=== PATIENT | female | born 1985 | race African-American/Black ===

== ENCOUNTER 2016-08-26 15:41 | Emergency (ER) | payer SELFPAY ==
[~2016-08-26] VITALS: Ht 149.9 cm; Wt 61.0 kg
[~2016-08-26 15:41] MED LIST: HYDR-3533 PO; PRED20 PO
[2016-08-26 15:43] VITALS: BP 138/64; PULSE 64; RESP 15; TEMP 98.4; O2SAT 97
[2016-08-26 16:01] VITALS: BP 116/74; PULSE 76; RESP 16; O2SAT 97
[2016-08-26] MEDS ORDERED: ONDANSETRON ODT 4 MG TAB PO ONE (16:15)
--- NOTE | 2016-08-26 16:16 | PD ---
HPI Chief Complaint: Cold / Flu Symptoms Time Seen by Provider: 16:16 Travel History International Travel<30 days: No Contact w/Intl Traveler<30days: No Traveled to known affect area: No History of Present Illness HPI 31-year-old female presents to the emergency department for evaluation of cold symptoms for 2 weeks. She reports nausea, vomiting, sore throat, cough and congestion. She denies any fevers. She reports vomiting last time yesterday, but states she has not been eating due to nausea. She does report drinking plenty of fluids. The patient also reports right shoulder pain for 1 week. She states that she does a lot of heavy lifting and denies any trauma. She states pain is worse with movement. She also reports numbness to the first and second digits of the right hand. However, patient was diagnosed with carpal tunnel in April 2016 and has not followed up with a hand surgeon. Patient denies any abdominal pain. She denies any chance of . No other complaints. Patient does report a history of pneumonia one year ago. PFSH Past Medical History Anemia: Yes Asthma: Yes Diabetes: No Diminished Hearing: No Gastrointestinal Disorders: No Genitourinary: Yes (HX BLADDER INFECTIONS ) Reproductive: No Respiratory: Yes Immunizations Current: Yes Influenza Vaccination: No ?: Not LMP: 08/07/2016 Menopausal: No : 3 Para: 2 Miscarriage: 0 : 0 Past Surgical History Section: Yes (X2) Gynecologic Surgery: Yes (C-SECT X 2) Social History Alcohol Use: No Tobacco Use: No Substance Use: No Allergies-Medications (Allergen,Severity, Reaction): Coded Allergies: Aspirin (Verified Allergy, Severe, RASH, 08/26/16) Codeine (Verified Allergy, Severe, Swelling, 08/26/16) Iodine (Verified Allergy, Severe, RASH WHEN USED TOPICALLY, 08/26/16) Penicillin (Verified Allergy, Severe, Shortness of Breath, 08/26/16) TYLENOL PM EXTRA STRENGTH CAPLETS (Verified Allergy, Severe, RASH, 08/26/16) *MDRO Multi-Drug Resistant Organism (Verified Allergy, Unknown, 08/26/16) MRSA 2004 Facial wound Reported Meds & Prescriptions Reported Meds & Active Scripts Active No Active Prescriptions or Reported Medications Review of Systems Except as stated in HPI: all other systems reviewed are Neg Physical Exam Narrative GENERAL: Well-developed well-nourished female patient, ambulatory. Afebrile. Vital signs stable. SKIN: Warm and dry. HEAD: Normocephalic. Atraumatic. EYES: No scleral icterus. No injection or drainage. ENT: Mucosa pink and moist. No erythema or exudates. No uvular edema. No uvular , palatal, or tonsillar deviation. Airway patent. Nasal turbinates appear normal without nasal blood, purulent drainage or septal hematoma. Bilateral tympanic membranes are clear without erythema or perforation. NECK: Supple, trachea midline. No JVD or lymphadenopathy. CARDIOVASCULAR: Regular rate and rhythm without murmurs, gallops, or rubs. Right radial pulse 2+. RESPIRATORY: Breath sounds equal bilaterally. No accessory muscle use. Lungs sounds are clear to auscultation. GASTROINTESTINAL: Abdomen soft, non-tender, nondistended. MUSCULOSKELETAL: No cyanosis, or edema. Patient has tenderness over right shoulder with full range of motion. No obvious deformity. No evidence of acute injury. BACK: Nontender without obvious deformity. No CVA tenderness. Data Data Last Documented VS Vital Signs Date Time Temp Pulse Resp B/P Pulse Ox O2 Delivery O2 Flow Rate FiO2 08/26/16 16:01 76 16 116/74 97 08/26/16 15:43 98.4 Orders Group A Rapid Strep Screen (08/26/16 16:14) Chest, Single Ap (08/26/16 ) Ondansetron Odt (Zofran Odt) (08/26/16 16:15) Strep Culture (Group A) (08/26/16 17:00) MDM Medical Decision Making Medical Screen Exam Complete: Yes Emergency Medical Condition: Yes Medical Record Reviewed: Yes Interpretation(s) chest x-ray - CONCLUSION: 1. Mild cardiomegaly. No focal infiltrate or effusion. Mild scoliosis. Differential Diagnosis Viral URI versus strep pharyngitis versus bronchitis versus pneumonia Narrative Course 31-year-old female presents to the emergency department for evaluation of cold symptoms for 2 weeks as well as right shoulder pain for 1 week. Right shoulder pain is consistent with a muscle strain. Strep swab and chest x-ray ordered and pending. She was given Zofran 4 mg ODT. Strep is negative. Chest x-ray shows no acute infiltrate or effusion. Symptoms are consistent with viral URI. She is instructed to follow with her primary care physician. She is return for any acute worsening of symptoms. Patient is agreeable. Patient is requesting another velcro wrist splint for right wrist due to carpal tunnel that she has has since April. The patient was discharged in stable condition with instructions, including return instructions and follow up instructions. Diagnosis Primary Impression: Upper respiratory infection Qualified Code: J06.9 - Viral upper respiratory tract infection Additional Impression: Right carpal tunnel syndrome Referrals: Primary Care Physician call for appointment Patient Instructions: General Instructions, Upper Respiratory Infection (ED) Additional Instructions: Zofran as directed as needed for nausea. Rest. Drink plenty of fluids. Philipp diet. Follow up with your primary care physician. Return to the emergency department for any acute, worsening of symptoms. Med/Other Pt SpecificInfo: Prescription(s) given Scripts Ondansetron Odt 4 Mg Tab4 Mg SL Q6HR PRN (Nausea/Vomiting) #12 TAB Ref 0 Prov:Caroline Ledesma 08/26/16 Disposition: 01 DISCHARGE HOME Condition: Stable Caroline Ledesma Aug 26, 2016 16:16
--- NOTE | 2016-08-26 17:34 | RADRPT ---
EXAM DATE/TIME: 08/26/2016 16:38 [facility] COMPARISON: CHEST SINGLE AP, April 13, 2014, 18:34. INDICATIONS : Cough MEDICAL HISTORY : None SURGICAL HISTORY : None ENCOUNTER: Initial ACUITY: Acute PAIN SCORE: Zero LOCATION: Chest FINDINGS: A single view of the chest demonstrates the lungs to be symmetrically aerated without evidence of mas s, infiltrate or effusion. The cardiomediastinal contours are mildly prominent. Osseous structures a re intact. CONCLUSION: 1. Mild cardiomegaly. No focal infiltrate or effusion. Mild scoliosis. Aden Morgan MD on August 26, 2016 at 17:32 Board Certified Radiologist. This report was verified electronically.
[2016-08-26] MEDS ORDERED: ONDA4TAB7 SL (17:46)
== END 2016-08-26 18:50 | disposition home or self-care (01) ==
LOC: NEPC 15:41
DX: J06.9 Acute upper respiratory infection, unspecified (principal); G56.01 Carpal tunnel syndrome, right upper limb
CPT/HCPCS: 71010; 87081; 87880; 99283; L3908

== ENCOUNTER 2017-02-03 17:28 | Emergency (ER) | payer SELFPAY ==
[~2017-02-03] VITALS: Ht 149.9 cm; Wt 60.0 kg
[~2017-02-03 17:28] MED LIST changes: -HYDR-3533 PO; +ONDA4TAB7 SL; -PRED20 PO
[2017-02-03 17:31] VITALS: BP 128/70; PULSE 120; RESP 20; TEMP 98.8; O2SAT 100
[2017-02-03 18:34] LABS: BACTERIA, URINE MANY /hpf; BLOOD, URINE MOD (NEG); COMMENT (UR) CULTURE INDICATED; CULTURE IF INDICATED CULTURE INDICATED; GLUCOSE,URINE NEG (NEG); KETONE, URINE NEG (NEG); MUCUS URINE FEW /lpf (OCC); NITRITE,URINE NEG (NEG); PH, URINE 6.5 (5.0-8.5); SQUAMOUS EPITHELIAL CELL URINE 2 /hpf (0-5); TRANSITIONAL EPI CELLS, URINE 1 /hpf; URINE COLOR YELLOW (YELLW/STRAW)
[2017-02-03] MEDS ORDERED: PHEN0.4T PO (19:09)
[2017-02-03] MEDS ORDERED: MACR100C2 PO (19:09)
--- NOTE | 2017-02-03 19:10 | PD ---
HPI . Pelvic pain Chief Complaint: Abdominal Pain Time Seen by Provider: 18:54 Travel History International Travel<30 days: No Contact w/Intl Traveler<30days: No Traveled to known affect area: No History of Present Illness HPI This patient presents with a chief complaint of a one-week history of pelvic pain associated with dysuria, frequency and malodorous urine. She denies fever. She has not had any flank pain. She reports some nausea but no vomiting. No modifying factors. She rates her pain 9/10. PFSH Past Medical History Anemia: Yes Asthma: Yes Diabetes: No Diminished Hearing: No Gastrointestinal Disorders: No Genitourinary: Yes (HX BLADDER INFECTIONS ) Reproductive: No Respiratory: Yes (ASTHMA) Immunizations Current: Yes Menopausal: No : 3 Para: 2 Miscarriage: 0 : 0 Past Surgical History Section: Yes (X2) Gynecologic Surgery: Yes (C-SECT X 2) Social History Alcohol Use: No Tobacco Use: No Substance Use: No Allergies-Medications (Allergen,Severity, Reaction): Coded Allergies: Aspirin (Verified Allergy, Severe, RASH, 02/03/17) Codeine (Verified Allergy, Severe, Swelling, 02/03/17) Iodine (Verified Allergy, Severe, RASH WHEN USED TOPICALLY, 02/03/17) Penicillin (Verified Allergy, Severe, Shortness of Breath, 02/03/17) TYLENOL PM EXTRA STRENGTH CAPLETS (Verified Allergy, Severe, RASH, 02/03/17 ) *MDRO Multi-Drug Resistant Organism (Verified Allergy, Unknown, 02/03/17) MRSA 2004 Facial wound Reported Meds & Prescriptions Reported Meds & Active Scripts Active Ondansetron Odt 4 Mg Tab 4 Mg SL Q6HR PRN Review of Systems Except as stated in HPI: all other systems reviewed are Neg General / Constitutional: No: Fever, Chills Gastrointestinal: Positive: Nausea, No: Vomiting Genitourinary: Positive: Urgency, Frequency, Dysuria, Pelvic Pain, No: Flank Pain Physical Exam Narrative GENERAL: Awake and alert and in no acute distress. SKIN: Warm and dry. HEAD: Atraumatic. Normocephalic. EYES: Pupils equal and round. NECK: Trachea midline. CARDIOVASCULAR: Regular rate and rhythm. RESPIRATORY: No accessory muscle use. GI/: Mild suprapubic tenderness with no guarding or rebound. No CVA tenderness. MUSCULOSKELETAL: No obvious deformities. No edema. NEUROLOGICAL: Awake and alert. No obvious cranial nerve deficits. Motor grossly within normal limits. Normal speech. PSYCHIATRIC: Appropriate mood and affect; insight and judgment normal. Data Data Last Documented VS Vital Signs Date Time Temp Pulse Resp B/P Pulse Ox O2 Delivery O2 Flow Rate FiO2 02/03/17 17:31 98.8 120 20 128/70 100 Room Air Orders Urinalysis - C+S If Indicated (02/03/17 17:40) Urine Culture (02/03/17 17:45) Labs Laboratory Tests Test 02/03/17 17:45 Urine Color YELLOW Urine Turbidity HAZY Urine pH 6.5 Urine Specific [place] 1.022 Urine Protein 30 mg/dL Urine Glucose (UA) NEG mg/dL Urine Ketones NEG mg/dL Urine Occult Blood MOD Urine Nitrite NEG Urine Bilirubin NEG Urine Urobilinogen 2.0 MG/DL Urine Leukocyte Esterase LARGE Urine RBC 136 /hpf Urine WBC /hpf Urine Squamous Epithelial 2 /hpf Cells Urine Transitional Epithelial 1 /hpf Cells Urine Bacteria MANY /hpf Urine Mucus FEW /lpf Microscopic Urinalysis Comment CULTURE INDICATED MDM Medical Decision Making Medical Screen Exam Complete: Yes Emergency Medical Condition: Yes Differential Diagnosis Final differential diagnosis of urinary symptoms includes but is not limited to UTI, kidney stone, pyelonephritis, bacterial vaginosis, yeast infection, urinary retention Narrative Course This patient presents with signs and symptoms compatible with UTI. UA>>large LE, 136 RBCs. TNTC WBCs, many bact. This patient will be treated for UTI with Macrobid and Pyridium. Diagnosis Primary Impression: Urinary tract infection Qualified Code: N30.00 - Acute cystitis without hematuria Patient Instructions: General Instructions, Urinary Tract Infection in Women ( [place]) Med/Other Pt SpecificInfo: Prescription(s) given Scripts Phenazopyridine (Pyridium)100 Mg [id number] Mg PO every 6 hours PRN (DYSURIA) #10 TAB Ref 0 Prov:Karime Fernandez MD 02/03/17 Nitrofurantoin Monohydrate Macrocrystals (Macrobid)100 Mg [id number] Mg PO BID 7 Days Ref 0 Prov:Karime Fernandez MD 02/03/17 Disposition: 01 DISCHARGE HOME Condition: Stable Karime Fernandez MD Feb 03, 2017 19:10
[2017-02-03] MEDS ORDERED: PHENAZOPYRIDINE HCL 200 MG TAB PO ONE (19:15)
[2017-02-03] MEDS ORDERED: NITROFURANTOIN MONOHYD MACROCR 100 MG CAP PO ONE (19:15)
== END 2017-02-03 19:30 | disposition home or self-care (01) ==
LOC: NEPD 17:28
DX: N39.0 Urinary tract infection, site not specified (principal); B96.20 Unspecified Escherichia coli [E. coli] as the cause of diseases classified elsewhere; R11.0 Nausea; D64.9 Anemia, unspecified; J45.909 Unspecified asthma, uncomplicated; Z88.5 Allergy status to narcotic agent; Z79.899 Other long term (current) drug therapy
CPT/HCPCS: 81001; 87077; 87086; 87186; 99284

== ENCOUNTER 2017-04-29 12:52 | Emergency (ER) | payer SELFPAY ==
[~2017-04-29] VITALS: Ht 149.9 cm; Wt 70.0 kg
[~2017-04-29 12:52] MED LIST changes: +MACR100C2 PO; +PHEN0.4T PO
[2017-04-29 12:54] VITALS: BP 117/69; PULSE 69; RESP 16; TEMP 99.1; O2SAT 99
== END 2017-04-29 15:33 | disposition left against medical advice (07) ==
LOC: NED 12:52
DX: Z53.21 Procedure and treatment not carried out due to patient leaving prior to being seen by health care provider (principal)
CPT/HCPCS: 99281